=== PATIENT | female | born 1975 | race Asian ===

== ENCOUNTER 2019-10-12 10:52 | Day surgery (SDC) | payer OTHER ==
[~2019-10-12] VITALS: Ht 157.5 cm; Wt 59.0 kg
[2019-10-12] MEDS ORDERED: fentaNYL 0.05 MG/ML VIAL ONE (12:13)
[2019-10-12] MEDS ORDERED: MIDAZOLAM 2 MG/2 ML VIAL ONE (12:13)
== END 2019-10-12 13:57 | disposition home or self-care (01) ==
LOC: MMU 10:52 → MDS 10:52
PROVIDERS: ATTEND Internal Medicine Gastroenterology
DX: K21.9 Gastro-esophageal reflux disease without esophagitis (principal); K30 Functional dyspepsia; Z87.891 Personal history of nicotine dependence; Z79.899 Other long term (current) drug therapy
CPT/HCPCS: 43235; 81025; J2250; J3010